=== PATIENT | female | born 1995 | race Caucasian/White ===

== ENCOUNTER 2018-07-12 08:58 | Outpatient (REF) | payer SELFPAY ==
[2018-07-12 22:41] LABS: ALT 29 U/L (12-78); AST 18 U/L (15-37); Alkaline Phosphatase 71 U/L (46-116); Anion Gap 14.1 mmol/L (3-11); BUN 8 mg/dL (7-18); Bilirubin, Total 1.1 mg/dL (0.2-1.0); CO2 23.9 mmol/L (21.0-32.0); CREATININE 0.76 mg/dL (0.55-1.02); Calcium 9.7 mg/dL (8.5-10.1); Chloride 101 mmol/L (98-107); Glucose 101 mg/dL (70-100); Potassium 4.1 mmol/L (3.5-5.1); Sodium 139 mmol/L (136-145); Total Protein 8.3 g/dL (6.4-8.2)
[2018-07-12 22:47] LABS: Hemoglobin A1C 5.1 % (4.5-6.2)
== END 2018-07-12 09:18 ==
LOC: NCHCN 08:58
PROVIDERS: PCP Family Medicine; Visit Provider Family Medicine
DX: R17 Unspecified jaundice (principal); R73.03 Prediabetes
CPT/HCPCS: 80053; 83036

== ENCOUNTER 2020-11-20 14:40 | Outpatient (REF) | payer BC, SELFPAY ==
[2020-11-20 13:40] LABS: Hemoglobin A1C 5.1 % (<5.7)
[2020-11-20 13:51] LABS: ALT 25 U/L (14-59); AST 18 U/L (15-37); Albumin 4.4 g/dL (3.4-5.0); Alkaline Phosphatase 73 U/L (46-116); BUN 14 mg/dL (7-18); Bilirubin, Total 1.2 mg/dL (0.2-1.0); CREATININE 0.7 mg/dL (0.55-1.02); Calcium 9.1 mg/dL (8.5-10.1); Calculated LDL 88 mg/dL (<100); Chloride 104 mmol/L (98-107); Cholesterol 152 mg/dL (<200); Glucose 95 mg/dL (74-106); HDL Cholesterol 44 mg/dL (40-60); Potassium 3.8 mmol/L (3.5-5.1); Sodium 141 mmol/L (136-145); Total Protein 7.8 g/dL (6.4-8.2); Triglyceride 104 mg/dL (<150)
== END 2020-11-20 14:41 | disposition home or self-care (01) ==
LOC: NCHCN 14:40
PROVIDERS: PCP Family Medicine; Visit Provider Family Medicine
DX: Z00.00 Encounter for general adult medical examination without abnormal findings (principal); R73.03 Prediabetes; R17 Unspecified jaundice; Z13.220 Encounter for screening for lipoid disorders
CPT/HCPCS: 80053; 80061; 83036

== ENCOUNTER 2021-08-05 16:21 | Outpatient (REF) | payer BC, SELFPAY ==
[2021-08-05 21:05] LABS: HCT 44.8 % (36.0-46.0); HGB 14.8 g/dL (11.2-15.7); MCH 28.3 pg (27.0-33.0); MCV 85.7 fL (80-95); MPV 11.2 fL (8.0-11.0); Platelet Count 294 10^3/uL (130-400); RBC 5.23 10^6/uL (3.93-5.22); RDW 12.1 % (11.7-14.6); RDW-SD 38.2 fL; WBC 9.96 10^3/uL (4.4-10.8)
== END 2021-08-05 16:22 | disposition home or self-care (01) ==
LOC: NCHCN 16:21
PROVIDERS: PCP Family Medicine; Visit Provider Family Medicine
DX: N92.0 Excessive and frequent menstruation with regular cycle (principal)
CPT/HCPCS: 85027